=== PATIENT | male | born 1980 | race Caucasian/White ===

== ENCOUNTER → 2023-05-14 12:34 | Outpatient (CLI) | payer BC, SELFPAY ==
[2023-05-14 13:34] LABS: Basophils % 0.2 % (0.1-2.0); Eosinophils # 0.2 K/mm3 (0.0-0.4); Eosinophils % 2.7 % (0.1-12.0); Hematocrit 51.6 % (42.0-52.0); Lymphocytes # 2.3 K/mm3 (0.7-4.5); Lymphocytes % 27.3 % (10-50); Mean Corpuscular Hemoglobin 31.6 pg (27.0-31.2); Mean Corpuscular Volume 90.2 fl (80-94); Mean Platelet Volume 8.4 fl (7.4-10.4); Monocytes # 0.5 K/mm3 (0.1-1.0); Monocytes % 5.3 % (1.7-9.3); Neutrophils # 5.5 K/mm3 (1.8-7.8); Neutrophils % 64.5 % (37.0-80.0); Platelet Count 307 K/mm3 (142-424); Red Blood Count 5.72 M/mm3 (4.60-6.20); White Blood Count 8.5 K/mm3 (4.8-10.8)
[2023-05-14 13:47] LABS: Alanine Aminotransferase 23 U/L (12-78); Albumin Level 4.3 g/dl (3.5-5.0); Alkaline Phosphatase 88 U/L (38-126); Anion Gap 9.9 mEq/L (5-15); Aspartate Amino Transferase 31 U/L (17-59); Bilirubin,Direct 0.2 mg/dl (0.0-0.4); Bilirubin,Indirect 0.5 mg/dL (0.0-0.9); Bilirubin,Total 0.7 mg/dl (0.2-1.3); Bilirubin,Unconjugated 0.5 mg/dL (0.0-1.1); Blood Urea Nitrogen 10 mg/dl (9-20); Calcium 9.1 mg/dl (8.4-10.2); Carbon Dioxide 29 mmol/L (22.0-30.0); Chloride 97 mmol/L (98-107); Chol/HDL Ratio 7.8 (1-3.5); Cholesterol 217 mg/dl (140-200); Estimated Glomerular Filt Rate 106 ml/min (>60); GFR (African American) 128 ML/MIN (>60); Glucose 336 mg/dl (74-100); HDL Cholesterol 28 mg/dl (40-60); Magnesium 1.7 mg/dl (1.6-2.3); Potassium 3.9 mmoL/L (3.5-5.1); Sodium 132 mmol/L (136-145); Total Protein,Serum 6.9 g/dl (6.3-8.2); Triglycerides 356 mg/dl (30-150); VLDL Cholesterol 71 mg/dL (0-40)
[2023-05-14 13:56] LABS: Hemoglobin 18.1 g/dL (14.1-18.0)
[2023-05-14 13:58] LABS: Direct LDL Cholesterol 115.25 mg/dL (100-129)
[2023-05-14 14:03] LABS: Free T4 (Free Thyroxine) 0.94 ng/dl (0.78-2.19)
[2023-05-14 14:17] LABS: Thyroid Stimulating Hormone 3.33 uIU/mL (0.465-4.68)
[2023-05-14 15:20] LABS: Hemoglobin A1C 10.6 % (4.0-6.0)
== END ==
PROVIDERS: PCP Family Medicine; Visit Provider Internal Medicine
DX: I10 Essential (primary) hypertension (principal); R07.9 Chest pain, unspecified; R94.31 Abnormal electrocardiogram [ECG] [EKG]; Z82.49 Family history of ischemic heart disease and other diseases of the circulatory system; Z87.891 Personal history of nicotine dependence
CPT/HCPCS: 36415; 80048; 80061; 80076; 83036; 83735; 84439; 84443; 85025

== ENCOUNTER 2023-05-15 15:13 | Emergency (ER) | payer BC, OTHER, SELFPAY ==
[2023-05-15] VITALS (9 sets, daily range): BP systolic 140–177; BP diastolic 83–130; PULSE 75–87; RESP 12–20; TEMP 36.7; O2SAT 97–99; BMI 36.8
[2023-05-15 15:26] LABS: POC Glucose,Bedside 257 (70-110)
--- NOTE | 2023-05-15 15:30 | CT_ITS ---
PROCEDURE INFORMATION: Exam: CT Head Without And With Contrast Exam date and time: 05/15/2023 4:09 PM Age: 42 years old Clinical indication: Altered mental status/memory loss; Additional info: Intermittent altered mental status/agitation TECHNIQUE: Imaging protocol: Computed tomography of the head without and with contrast. Radiation optimization: All CT scans at this facility use at least one of these dose optimization techniques: automated exposure control; mA and/or kV adjustment per patient size (includes targeted exams where dose is matched to clinical indication); or iterative reconstruction. Contrast material: ISOVUE; Contrast volume: 80 ml; Contrast route: IV; REPORTING DATA: Count of CT and Cardiac NM exams in prior 12 months: This patient has received 0 known CTs and 0 known cardiac nuclear medicine studies in the 12 months prior to the current study. COMPARISON: No relevant prior studies available. FINDINGS: Brain: Multifocal nonenhancing low-density lesions are noted in the region of the posteromedial right temporal lobe that may involve a portion of the right occipital lobe centered on axial images 26 through 29 of series 3. The largest of the low-density lesions measures around 17 mm. The entire area of involvement measures around 4.9 x 2.1 x 1.6 cm. Additional 7 mm low-density lesion in the anterior right basal ganglion on axial image 36. No other abnormalities identified. No abnormal enhancing process. No mass, mass effect or midline shift. No hemorrhage. Cerebral ventricles: No ventriculomegaly. Paranasal sinuses: Zeoq-rr-tubnecit mucosal thickening involving the left maxillary sinus the sphenoid sinus and several of the ethmoids bilaterally. No fluid levels. Opacification of several of the mastoid air cells bilaterally. Mastoid air cells: See Paranasal sinuses finding. Bones/joints: See Paranasal sinuses finding. Soft tissues: Unremarkable. IMPRESSION: 1. Abnormal multifocal low-density lesions or process in the right temporal occipital lobe region and additional subcentimeter low-density lesion in the right basal ganglion. Etiology of these findings uncertain. Findings might reflect ischemic changes of uncertain acuity but could be recent or subacute. Developing demyelinating process or possibly mass or even infection might also be considered. I suspect the finding in the basal ganglion may be a prominent perivascular space. Further assessment of findings with a prompt MRI of the brain with and without contrast is advised. 2. Incidental paranasal sinus disease of uncertain acuity.
--- NOTE | 2023-05-15 15:35 | HMH.EDGENADL ---
Discharge Plan Disposition Patient Disposition: Xfer Short-Term Hosp Condition: Good Prescriptions Prescriptions: No Action doxycycline hyclate 100 mg capsule 100 mg PO BID lisinopril 40 mg tablet 40 mg PO DAILY metoprolol succinate 50 mg tablet extended release 24 hr 50 mg PO DAILY metformin 500 mg tablet 500 mg PO BID fluticasone furoate 50 mcg/actuation blister with device inhalation amlodipine 10 mg tablet 10 mg PO DAILY Qty: 30 11RF Referrals Follow up/Referrals: Levon Wyman [Primary Care Provider] - See instructions Activity Restrictions/Add. Instructions Additional Instructions/Restrictions: Please proceed directly to [facility] emergency department for evaluation. It is important that you go directly there and do not stop anywhere along the way. Do not eat or drink anything. [address], [facility], First Floor, [place] [address] Clinical Impressions Clinical Impression: Brain lesion, Hypokalemia, Elevated troponin, Frequent headaches, Fever, intermittent, Altered behavior Discharge ED Provider: Carmelita Ccohran General Adult HPI General Chief complaint: Altered Mental Status Stated complaint: sent by romel Carter, Time Seen by Provider: 05/15/23 15:30 Mode of Arrival: Ambulatory Source of Information: Patient and Spouse Limitations: No Limitations Description of Symptoms (Recalled from ER Triage Doc. by RN): pt presents to ED with c/o confusion. reports pt has not been acting like himself over the past month. pt reports they did take a trip to [facility] approx 1 month ago. pt reports fever off and onn intermittently. pt reports headache intermittently, disorientation. pt reports things not looking right . History of Present Illness HPI narrative: This patient is a 42-year-old male with a history of hypertension, diabetes, and obesity presenting to the emergency department for evaluation with concern for intermittent headaches and abnormal behavior that have been going on over the last month. According to the patient's , they went to [place] on a trip approximately month ago, and the patient had been [place] out in [place]. A week after coming back, he started having issues with headaches as well as intermittent episodes of abnormal behavior. His states that it seems like he becomes evil and incredibly helpful. She also notes that he will get things as if it is the first time that he is seeing them, as things look abnormal to him whenever he has these headaches. He describes things as being fuzzy. During this time, he is also had cough, congestion, nausea, and poor appetite. He has not wanted to eat or drink very much. Family notes that it seems like the patient is drunk when this happens. They state that he has only been able to drink beer, as it is only thing that tastes good to him, but he has only been having 1 or so in the evening and has not been drinking to the point of intoxication, though he does seem intoxicated. He has not wanted to eat or drink anything because nothing is tasted right to him. He also has not been wanting to take his medication, which is unlike him. She also notes that he has had a lot of trouble with controlling his blood pressure and blood sugar, which is unusual because they were typically on control with metformin, lisinopril, metoprolol, and amlodipine. He has been seen twice for this, once at [facility] emergency department and once at [facility] emergency department, where on medical record review he had a CT scan of his head done at [facility] without contrast on 05/06/2023 that did not demonstrate any acutely concerning abnormalities. The next day at [place], on medical record review, he had CT of his neck, chest, abdomen, and pelvis done that did not demonstrate any acutely concerning abnormalities. Blood cultures were se
--- NOTE | 2023-05-15 15:42 | ECG_ITS ---
APPROVED REPORT Exam: Resting ECG HR:75 bpm ECG Measurements Heart Rate 75 AXES WI 164 P 27 QRSd 118 QRS 41 QT 386 T 60 QTc 414 Conclusion SINUS RHYTHM MODERATE INTRAVENTRICULAR CONDUCTION DELAY [110+ ms QRS DURATION] ST DEVIATION AND MODERATE T-WAVE ABNORMALITY, CONSIDER LATERAL ISCHEMIA [-0.1+ mV T-WAVE IN I/aVL/V5/V6] ABNORMAL ECG UNCONFIRMED REPORT Electronically signed by : Jorden Payne MD 05/17/2023 19:49:45
[2023-05-15 15:46] LABS: Adenovirus,PCR Not Detected (NotDetected); Coronavirus 229E Not Detected (NotDetected); Coronavirus NL63 Not Detected (NotDetected); Coronavirus OC43 Not Detected (NotDetected); Coronovirus HKU1,PCR Not Detected (NotDetected); Human Metapneumovirus Not Detected (NotDetected); Influenza A, PCR Not Detected (NotDetected); Influenza AH1, 2009 Not Detected (NotDetected); Influenza AH1, PCR Not Detected (NotDetected); Influenza AH3,PCR Not Detected (NotDetected); Influenza B, PCR Not Detected (NotDetected); Parainfluenza 1, PCR Not Detected (NotDetected); Parainfluenza 2, PCR Not Detected (NotDetected); Parainfluenza 3, PCR Not Detected (NotDetected); Parainfluenza 4, PCR Not Detected (NotDetected); Respiratory Syncytial Virus Not Detected (NotDetected); Rhinovirus/Enterovirus Not Detected (NotDetected)
[2023-05-15 16:09] LABS: Basophils % 0.2 % (0.1-2.0); Eosinophils # 0.2 K/mm3 (0.0-0.4); Hematocrit 48.9 % (42.0-52.0); Hemoglobin 17.2 g/dL (14.1-18.0); Lymphocytes # 2.2 K/mm3 (0.7-4.5); Lymphocytes % 20.5 % (10-50); Mean Corpuscular HGB Conc 35.1 g/dL (31.8-35.4); Mean Corpuscular Hemoglobin 31.4 pg (27.0-31.2); Mean Corpuscular Volume 89.3 fl (80-94); Mean Platelet Volume 7.9 fl (7.4-10.4); Monocytes # 0.5 K/mm3 (0.1-1.0); Monocytes % 4.9 % (1.7-9.3); Neutrophils # 7.6 K/mm3 (1.8-7.8); Neutrophils % 72.3 % (37.0-80.0); Platelet Count 278 K/mm3 (142-424); Red Blood Count 5.48 M/mm3 (4.60-6.20); White Blood Count 10.5 K/mm3 (4.8-10.8)
[2023-05-15 16:15] LABS: Acetone, Serum (Rapid) Small (None Detect)
[2023-05-15 16:16] LABS: Chloride 100 mmol/L (98-107); Potassium 3.1 mmoL/L (3.5-5.1); Sodium 134 mmol/L (136-145)
[2023-05-15 16:18] LABS: Blood Urea Nitrogen 9 mg/dl (9-20); Creatinine Clearance Estimated 239 mL/min (50-200); Estimated Glomerular Filt Rate 147 ml/min (>60); GFR (African American) 178 ML/MIN (>60)
[2023-05-15 16:19] LABS: Alanine Aminotransferase 25 U/L (12-78); Albumin Level 4.3 g/dl (3.5-5.0); Albumin/Globulin Ratio 1.6 (1.1-1.8); Alkaline Phosphatase 96 U/L (38-126); Anion Gap 13.1 mEq/L (5-15); Aspartate Amino Transferase 30 U/L (17-59); Bilirubin,Total 0.8 mg/dl (0.2-1.3); Calcium 8.8 mg/dl (8.4-10.2); Carbon Dioxide 24 mmol/L (22.0-30.0); Globulin 2.7 g/dL (1.3-3.2); Glucose 238 mg/dl (74-100); Lactic Acid 1.2 mmol/L (0.7-2.1); Magnesium 1.7 mg/dl (1.6-2.3); Phosphorous 3.5 mg/dl (2.5-4.5)
[2023-05-15 16:20] LABS: Activated Partial Thrombo Time 28.7 seconds (22.8-30.6); Ammonia 26 umol/L (9-30); INR 1.03 (0.9-1.1); Prothrombin Time 11.1 seconds (10.1-12.5)
[2023-05-15 16:21] LABS: Acetaminophen < 10 ug/ml (10-30); Ethyl Alcohol < 10 mg/dl (0-10); Salicylate < 1.0 mg/dL (2.0-20.0)
[2023-05-15 16:24] LABS: C-Reactive Protein 1.3 mg/L (0-4)
[2023-05-15 16:31] LABS: Troponin I 0.05 ng/ml (0.00-0.034)
[2023-05-15 16:36] LABS: VBG Base Excess -1.2 mmol/L (-2.4-2.3); VBG HCO3 22.3 mmol/L (23-30); VBG Oxygen Saturation 98.3 % (50-70); VBG PCO2 30.7 mmol/L (35-51); VBG PH 7.48 mmol/L (7.31-7.41); VBG PO2 115.4 mmol/L (28-40); VBG Total CO2 23.2 mmol/L (23-27)
[2023-05-15 16:46] LABS: Erythrocyte Sedimentation Rate 8 mm/hr (0-15)
[2023-05-15 17:44] LABS: Coronavirus 19, PCR Detected (NotDetected)
--- NOTE | 2023-05-15 17:54 | PC.NURSE ---
Calling for ED to ED transfer
--- NOTE | 2023-05-15 18:06 | PC.NURSE ---
on phone with [facility]
--- NOTE | 2023-05-15 18:06 | PC.NURSE ---
Dr. Cochran speaking to Dr. Morales with [facility]
--- NOTE | 2023-05-15 18:25 | PC.NURSE ---
2nd troponin drawn and sent to lab
--- NOTE | 2023-05-15 18:30 | PC.NURSE ---
report called to curt at [facility] nancy
[2023-05-15 19:02] LABS: Troponin I 0.05 ng/ml (0.00-0.034)
[2023-05-20 14:09] LABS: Lyme B. burgdorferi PCR Blood Negative (Negative)
== END 2023-05-15 18:56 | disposition short-term general hospital (02) ==
PROVIDERS: Emergency Provider Emergency Medicine; PCP Family Medicine
DX: G93.9 Disorder of brain, unspecified (principal); R51.9 Headache, unspecified; R41.0 Disorientation, unspecified; E87.6 Hypokalemia; R77.8 Other specified abnormalities of plasma proteins; R50.9 Fever, unspecified; I10 Essential (primary) hypertension; I45.9 Conduction disorder, unspecified; Z87.891 Personal history of nicotine dependence
CPT/HCPCS: 70470; 80053; 80329; 82009; 82140; 82803; 82962; 83605; 83735; 84100; 84484; 85025; 85610; 85651; 85730; 86140; 87476; 87632; 87635; 93005; 96361; 96365; 96366; 96375; 99291; G0480; Q9967